=== PATIENT | male | born 1995 | race Caucasian/White ===

== ENCOUNTER 2019-06-25 20:19 | Emergency (ER) | payer BC ==
[~2019-06-25] VITALS: Ht 175.3 cm; Wt 68.8 kg
[~2019-06-25 20:19] MED LIST: ZOFRAN ODT4 MG PO
[2019-06-25 21:14] LABS: HEMATOCRIT 42.6 % (39.0-50.0); HEMOGLOBIN 14.9 g/dl (14.0-18.0); IMMATURE GRANULOCYTES 0.3 % (0.0-5.0); MEAN CELL VOLUME 86.2 fL CALC (80.0-100.0); MEAN CORPUSCULAR HGB 30.2 pG CALC (26.0-32.0); NEUT# 3.69 thou/uL (1.82-7.42); RED BLOOD COUNT 4.94 mill/uL (4.70-6.10); RED CELL DISTRI WIDTH 11.8 % (11.5-15.5)
[2019-06-25 21:28] LABS: ALBUMIN 5.1 g/dL (3.2-5.0); ALKALINE PHOSPHATASE 86 u/l (38-126); ANION GAP 13 (6-22 (CALC)); BILIRUBIN, TOTAL 0.6 mg/dL (0.0-1.4); BUN 16 mg/dL (9-20); BUN/CREATININE RATIO 17 (12-20 (CALC)); CARBON DIOXIDE 29 mmol/l (22-30); CHLORIDE 105 mmol/l (95-108); CREATININE 0.9 mg/dL (0.7-1.3); GFR > 60 ML/MIN (>=60 (CALC)); GFR FOR AFR.AMER. > 60 ML/MIN (>=60 (CALC)); POTASSIUM 3.6 mmol/l (3.5-5.1); SGOT/AST 20 u/l (17-59); SODIUM 143 mmol/l (137-146); TOTAL PROTEIN 8.3 g/dL (6.3-8.2)
[2019-06-25] MEDS ORDERED: FIORICET PO (22:13)
[2019-06-25] MEDS ORDERED: ONDANSETRON4 MG PO (22:13)
[2019-06-25 22:30] VITALS: BP 138/88
== END 2019-06-25 22:30 | disposition home or self-care (01) | DRG 392 ==
LOC: ED 20:19
PROVIDERS: Emergency Medicine
DX: K29.70 Gastritis, unspecified, without bleeding (principal); R51 Headache

== ENCOUNTER 2022-07-08 18:36 | Emergency (ER) | payer SELFPAY ==
[~2022-07-08] VITALS: Ht 175.3 cm; Wt 74.0 kg
[~2022-07-08 18:36] MED LIST changes: +FIORICET PO; +ONDANSETRON4 MG PO
[2022-07-08] MEDS ORDERED: KEFLEX500 MG PO (21:07)
[2022-07-08 21:17] VITALS: BP 132/61
== END 2022-07-08 21:17 | disposition home or self-care (01) | DRG 605 ==
LOC: ED 18:36
DX: S61.211A Laceration without foreign body of left index finger without damage to nail, initial encounter (principal); W31.9XXA Contact with unspecified machinery, initial encounter; Y93.89 Activity, other specified; Y92.89 Other specified places as the place of occurrence of the external cause; Y99.0 Civilian activity done for income or pay

== ENCOUNTER 2022-07-18 08:06 | Emergency (ER) | payer SELFPAY ==
[~2022-07-18] VITALS: Ht 175.3 cm; Wt 90.0 kg
[~2022-07-18 08:06] MED LIST changes: +KEFLEX500 MG PO
[2022-07-18 08:09] VITALS: BP 135/78
[2022-07-18 08:11] VITALS: BP 135/78
[2022-07-18] MEDS ORDERED: CEPHALEXIN500 M1 PO (08:21)
== END 2022-07-18 08:20 | disposition home or self-care (01) | DRG 950 ==
LOC: ED 08:06
DX: S61.211D Laceration without foreign body of left index finger without damage to nail, subsequent encounter (principal); X58.XXXD Exposure to other specified factors, subsequent encounter